=== PATIENT | male | born 1985 | race Caucasian/White ===

== ENCOUNTER 2024-08-13 19:16 | Emergency (ER) | payer BC ==
[~2024-08-13] VITALS: Ht 182.9 cm; Wt 94.7 kg
[2024-08-13] MEDS: LIDOcaine 1% W/epiNEPHrine 1:100,000 20ml vial IJ STA (21:24)
[2024-08-13] MEDS: TETanus/Pertussis (Acell)/Diphther VAC/PF (Tdap-Adult) 0.5ml syringe IMVAC ONE (21:27)
--- NOTE | 2024-08-13 21:43 | Physician Documentation ---
History of Present Illness ~ Chief Complaint: Laceration Stated Complaint: WRIST LAC Time Seen by MD: 20:01 OK to notify your PCP?: Yes Source: patient Mode of Arrival: POV Exam Limitations: no limitations HPI He is a 39-year-old male presenting to our emergency department tonight after using a drip box tender which slipped and caused a laceration to his left wrist for which he soaked at home in isopropyl alcohol prior to arrival. Bleeding con trolled with pressure. Denies any blood thinners. Denies HI or SI. Last tetanus unknown. Tetanus Within 5 Years: No Medication Reconciliation Allergies: Coded Allergies: No Known Allergies (Unverified , 08/13/24) Review of Systems All Other Systems at this time: Reviewed and Negative Physical Exam Vital Signs: RN Vital Signs have been reviewed: Yes, Temperature: 98.2, Heart Rate: 69, Respiratory Rate: 14, BP: 131/76, Pulse Oximetry: 98, Weight: 94.720 Oxygen Flow Rate: 0 Pulse Oximetry Reflects: adequate oxygenation Physical Exam General: Well developed, well nourished, mild distress. HEENT: Atraumatic, normal conjunctiva, moist mucous membranes. Neck: Full range of motion, supple. Respiratory: Lungs clear, no respiratory distress. Chest: No accessory muscle use, nontender. Cardiovascular: Regular rate and rhythm. Extremities: Normal range of motion, nontender, normal capillary refill, no deformity. Back: No CVA tenderness. Neurologic: Oriented x4. Psychiatric: Normal mood and affect. Denies HI or SI. Skin: Normal color, warm and dry. Small laceration approximately 1.5 cm to distal ulnar portion of the left wrist, as well approximated. Currently no bleeding. Procedures Procedure Note Received verbal consent from the patient to perform procedure. 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 Tetanus/Pertuss/Diph Acell/Pf (Boostrix (08/13/24 21:00) Lidocaine 1% W/Epi 1:100,000 (Xylocaine (08/13/24 20:58) Medications Received in ER Medications (Trade) Dose Ordered Sig/Eusebio Route PRN Reason Start Time Stop Time Status Last Admin Dose Admin (Boostrix vaccine syringe) 0.5 ml ONCE ONCE IMVAC 08/13/24 21:00 08/13/24 21:13 DC 08/13/24 21:27 0.5 ML Vital Signs 08/13/24 08/13/24 19:26 21:47 Temp 98.2 98.3 Pulse 69 70 Resp 14 16 B/P (MAP) 131/76 128/75 Pulse Ox 98 99 O2 Flow Rate 0 Medical Decision Making Findings Claude is a 39-year-old male with a small superficial laceration to his left wrist from a drip box tender slipping for which he soaked at home in isopropyl a lcohol prior to arrival. He denies any HI or SI so I am not concerned that this was self-inflicted on purpose. Wound soaked in Betadine and irrigated out. Last tetanus unknown, tetanus vaccine updated today in the emergency department. Edges were well approximated and 3 simple sutures placed, adherent dressing placed. he tolerated procedure well. Gave instructions to watch for signs or symptoms of infection and return back here if that is the case since he is not being prescribed an antibiotic. He should follow up with his primary care provider in the nex 3 days and return either here or primary care for suture re moval in 10 days. Return back here for any new or worsening symptoms Differential Dx:Considerations: Include: Contusion, Fracture, Hematoma, Neurovascular injury, Retained foreign body Departure Disposition: 01 HOME / SELF CARE / HOMELESS Impression: Primary Impression: Laceration Condition: Stable Discharge Instructions: Laceration Care, Adult, [id number] Additional Instructions: Come here for any new or worsening symptoms. You have 3 stitches please get the m removed in the10 days. With your primary care provider in the next 3 days keep wound clean and dry. Referrals: NO PRIMARY CARE PROVIDER (PCP) Education Educated: Patient Educated regarding: diagnosis, treatment, prognosis, need for follow up Signature Scribe Signature: . Attestation: Scribed for Rosa Huff by Rosa Ohara NP . 08/14/24 00:26 ROSA HUFF August 13, 2024 21:43
[2024-08-13 21:47] VITALS: BP 128/75; PULSE 70; RESP 16; TEMP 98.3; O2SAT 99
== END 2024-08-13 21:49 | disposition home or self-care (01) ==
LOC: ER 19:16
DX: S61.512A Laceration without foreign body of left wrist, initial encounter (principal); W01.0XXA Fall on same level from slipping, tripping and stumbling without subsequent striking against object, initial encounter; Y93.89 Activity, other specified; Y92.89 Other specified places as the place of occurrence of the external cause; Y99.8 Other external cause status
CPT/HCPCS: 12001; 90471; 90715; 99283; J7030